=== PATIENT | male | born 1965 | race Caucasian/White ===

== ENCOUNTER 2018-03-24 05:54 | Emergency (ER) | payer BC, OTHER ==
[~2018-03-24] VITALS: Ht 188 cm; Wt 95.3 kg
[2018-03-24 06:34] LABS: BASOPHILS % (AUTO) 0 % (0-10); EOSINOPHILS # (AUTO) 0.2 10^3/uL (0.0-0.3); EOSINOPHILS % (AUTO) 3 % (0-10); HEMATOCRIT 46 % (40-54); LYMPHOCYTES # (AUTO) 1.5 X 10^3 (1.0-4.0); LYMPHOCYTES % (AUTO) 26 % (12-44); MEAN CORPUSCULAR HEMOGLOBIN 30 PG (25-34); MEAN CORPUSCULAR HGB CONC 35 G/DL (32-36); MEAN CORPUSCULAR VOLUME 87 FL (80-99); MEAN PLATELET VOLUME 9.8 FL (7.4-10.4); MONOCYTES # (AUTO) 0.7 X 10^3 (0.0-1.0); MONOCYTES % (AUTO) 13 % (0-12); NEUTROPHILS # (AUTO) 3.3 X 10^3 (1.8-7.8); NEUTROPHILS % (AUTO) 58 % (42-75); PLATELET COUNT 186 10^3/uL (130-400); RED BLOOD COUNT 5.26 10^6/uL (4.35-5.85); WHITE BLOOD COUNT 5.7 10^3/uL (4.3-11.0)
[2018-03-24 06:38] LABS: BILIRUBIN,URINE NEGATIVE (NEGATIVE); CLARITY,URINE CLEAR; COLOR,URINE YELLOW; GLUCOSE, URINE (UA) NEGATIVE (NEGATIVE); KETONES,URINE NEGATIVE (NEGATIVE); LEUKOCYTE ESTERASE ,URINE 1+ (NEGATIVE); NITRITE,URINE NEGATIVE (NEGATIVE); PH,URINE 5 (5-9); PROTEIN,URINE 2+ (NEGATIVE); UROBILINOGEN,URINE 1 MG/DL (NORMAL)
[2018-03-24 06:48] LABS: BACTERIA,URINE TRACE /HPF; RBC,URINE 50-100 /HPF; WBC,URINE 0-2 /HPF
--- NOTE | 2018-03-24 06:49 | ED Abdominal Pain ---
General Chief Complaint: Abdominal/GI Problems Stated Complaint: RT SIDE ABD PAIN Nursing Triage Note: PT AMB TO ROOM #5 GUARDING STOMACH IN PAIN. A&OX4. C/O LOWER RT SIDE ABD PAIN THAT BEGAN THIS AM AFTER BOWEL MOVEMENT. PT REPORTS HE WOKE UP THIS AM, HAD 2X CUPS OF COFFEE, HAD BM, AND BEGAN TO HAVE "EXTREME" ABD PAIN. PT REPORTS HE HAS NEVER HAD SIMILAR PAIN BEFORE. REPORTS HX OF STOMACH ULCERS APPROX 9 YEARS AGO AND REPORTS TO NOT BE F/U HE SHOULD WITH PCP. DENIES RECENT SICKNESS. DENIES N/V OR DIARRHEA. DURING TRIAGE PT NOTED TO BE RUBBING STOMACH AND MOANING IN PAIN. Sepsis Screen: No Definite Risk Source of Information: Patient Exam Limitations: No Limitations History of Present Illness Date Seen by Provider: Mar 24, 2018 Time Seen by Provider: 06:44 Initial Comments The patient is a 52-year-old white male who reports that at approximately 0430 hours he got up to the bathroom to have a bowel movement. The bowel movement appeared normal but immediately following that he was stricken with a sharp pain in his right lower quadrant. This has come continued unabated. He reports sweats but no apparent fever. He found it necessary to walk stooped over. He has all his abdominal organs. He gives a history of ulcer disease some 9 years ago which has been controlled by proton pump inhibitors. Timing/Duration: 1-3 Hours Severity/Quality: Moderate, Severe Location: RLQ Radiation: No Radiation Activities at Onset: None Allergies and Home Medications Allergies Coded Allergies: No Known Drug Allergies (Unverified , 03/24/18) Patient Home Medication List Home Medication List Reviewed: Yes Review of Systems Review of Systems Constitutional: see HPI EENTM: No Symptoms Reported Respiratory: No Symptoms Reported Cardiovascular: No Symptoms Reported Gastrointestinal: See HPI Genitourinary: No Symptoms Reported Musculoskeletal: no symptoms reported Skin: no symptoms reported Psychiatric/Neurological: No Symptoms Reported Endocrine: No Symptoms Reported Hematologic/Lymphatic: No Symptoms Reported Past Azoowop-Igolpx-Xnvzcm Hx Patient Social History Alcohol Use: Occasionally Uses Alcohol Beverage of Choice: Beer Recreational Drug Use: No Smoking Status: Never a Smoker 2nd Hand Smoke Exposure: No Recent Foreign Travel: No Contact w/Someone Who Travel: No Recent Infectious Disease Expo: No Recent Hopitalizations: No Physical Abuse: No Sexual Abuse: No Mistreated: No Seasonal Allergies Seasonal Allergies: No Past Medical History Surgeries: Yes (CARPAL TUNNEL) Respiratory: No Cardiac: No Neurological: No Genitourinary: No Musculoskeletal: No Endocrine: No HEENT: No Cancer: No Psychosocial: No Integumentary: No Blood Disorders: No Physical Exam Vital Signs Vital Signs - First Documented 03/24/18 06:00 Temp 96.9 Pulse 56 Resp 16 B/P (MAP) 133/85 (101) Pulse Ox 99 O2 Delivery Room Air Capillary Refill : Less Than 3 Seconds Height/Weight/BMI Height: 6'2.00" Weight: 210lbs. oz. 95.325301nx; BMI Method:Stated General Appearance: moderate distress, other (anxious) HEENT: normal ENT inspection Neck: full range of motion Respiratory: chest non-tender, lungs clear, normal breath sounds, no respiratory distress, no accessory muscle use Cardiovascular: normal peripheral pulses, regular rate, rhythm, no edema, no gallop, no JVD, no murmur Gastrointestinal: abnormal bowel sounds (decreased), guarding (right lower quadrant) Extremities: normal range of motion, non-tender, normal inspection, no pedal edema, no calf tenderness, normal capillary refill, pelvis stable Back: normal inspection Pelvic: normal external exam, normal adnexa, no cerv. motion tender, no masses , discharge Neurologic/Psychiatric: shared services and outsourcing manager II-XII nml as tested, no motor/sensory deficits, alert, normal mood/affect, oriented x 3 Skin: normal color, warm/dry Lymphatic: no adenopathy Progress/Results/Core Measures Results/Orders Lab Results Laboratory Tests Test 03/24/18 06:10 03/24/18 06:15 Range/Units White Blood Count 5.7 4.3-11.0 10^3/uL Red Blood Count 5.26 4.35-5.85 10^6/uL Hemoglobin 16.0 13.3-17.7 G/DL Hematocrit 46 40-54 % Mean Corpuscular Volume 87 80-99 FL Mean Corpuscular Hemoglobin 30 25-34 PG Mean Corpuscular Hemoglobin Concent 35 32-36 G/DL Red Cell Distribution Width 13.0 10.0-14.5 % Platelet Count 186 130-400 10^3/uL Mean Platelet Volume 9.8 7.4-10.4 FL Neutrophils (%) (Auto) 58 42-75 % Lymphocytes (%) (Auto) 26 12-44 % Monocytes (%) (Auto) 13 H 0-12 % Eosinophils (%) (Auto) 3 0-10 % Basophils (%) (Auto) 0 0-10 % Neutrophils # (Auto) 3.3 1.8-7.8 X 10^3 Lymphocytes # (Auto) 1.5 1.0-4.0 X 10^3 Monocytes # (Auto) 0.7 0.0-1.0 X 10^3 Eosinophils # (Auto) 0.2 0.0-0.3 10^3/uL Basophils # (Auto) 0.0 0.0-0.1 10^3/uL Sodium Level 139 135-145 MMOL/L Potassium Level 4.0 3.6-5.0 MMOL/L Chloride Level 104 98-107 MMOL/L Carbon Dioxide Level 23 21-32 MMOL/L Anion Gap 12 5-14 MMOL/L Blood Urea Nitrogen 25 H 7-18 MG/DL Creatinine 1.27 0.60-1.30 MG/DL Estimat Glomerular Filtration Rate 59 BUN/Creatinine Ratio 20 Glucose Level 122 H 70-105 MG/DL Calcium Level 9.5 8.5-10.1 MG/DL Corrected Calcium 9.1 8.5-10.1 MG/DL Total Bilirubin 0.7 0.1-1.0 MG/DL Aspartate Amino Transf (AST/SGOT) 24 5-34 U/L Alanine Aminotransferase (ALT/SGPT) 39 0-55 U/L Alkaline Phosphatase 74 40-136 U/L Total Protein 6.9 6.4-8.2 GM/DL Albumin 4.5 3.2-4.5 GM/DL Urine Color YELLOW Urine Clarity CLEAR Urine pH 5 5-9 Urine Specific Normal 1.025 H 1.016-1.022 Urine Protein 2+ H NEGATIVE Urine Glucose (UA) NEGATIVE NEGATIVE Urine Ketones NEGATIVE NEGATIVE Urine Nitrite NEGATIVE NEGATIVE Urine Bilirubin NEGATIVE NEGATIVE Urine Urobilinogen 1 NORMAL MG/DL Urine Leukocyte Esterase 1+ H NEGATIVE Urine RBC (Auto) 5+ H NEGATIVE Urine RBC 50-100 H /HPF Urine WBC 0-2 /HPF Urine Squamous Epithelial Cells 5-10 /HPF Urine Crystals NONE /LPF Urine Bacteria TRACE /HPF Urine Casts NONE /LPF Urine Mucus MODERATE H /LPF Urine Culture Indicated NO My Orders Orders - JEAN MARIE FAUSTIN MD Cbc With Automated Diff (11/2/18 06:22) Comprehensive Metabolic Panel (03/24/18 06:22) Ua Culture If Indicated (03/24/18 06:22) Ketorolac Injection (Toradol Injection) (03/24/18 07:00) Ct Abd/Pelvis Wo(Kidney Stone) (03/24/18 06:59) Abdomen/Kub 1view (03/24/18 07:55) Medications Given in ED Current Medications Medications Dose Ordered Sig/Jeannette Route Start Time Stop Time Status Last Admin Dose Admin Ketorolac Tromethamine 30 mg ONCE ONCE IVP 03/24/18 07:00 03/24/18 07:02 DC 03/24/18 07:11 30 MG Vital Signs/I&O 03/24/18 06:00 Temp 96.9 Pulse 56 Resp 16 B/P (MAP) 133/85 (101) Pulse Ox 99 O2 Delivery Room Air Blood Pressure Mean: 101 Departure Communication (Admissions) CBC showed a low normal white count. UA showed 50 rbc's per high-powered field. Therefore CT scan was done with out contrast. Several tiny stones were noted in the kidney. A distal stone was noted in the right ureter just above the UVJ. It also appeared that there were 2 tiny stones in the bladder itself. The patient was apprised of these findings. Impression Primary Impression: right distal ureterolithiasis Disposition: 01 HOME, SELF-CARE Condition: Improved Departure-Patient Inst. Decision time for Depature: 07:58 Referrals: TAM HENDRICKSON DO (PCP/Family) Primary Care Physician Patient Instructions: No Instuctions Given Add. Discharge Instructions: All discharge instructions reviewed with patient and/or family. Voiced understanding. Increase oral fluids. 2.strain all urine 3.take meds as directed. 4.call Dr. Guallpa's office at [phone] for appointment early next week. Scripts Hydrocodone Bit/Acetaminophen (LORTAB 7.5 MG TABLET) 1 Ea Tablet 1 EA PO 4 times a day, #20 TAB Prov: JEAN MARIE FAUSTIN MD 03/24/18 JEAN MARIE FAUSTIN MD Mar 24, 2018 06:49
[2018-03-24 06:54] LABS: ALBUMIN 4.5 GM/DL (3.2-4.5); BILIRUBIN,TOTAL 0.7 MG/DL (0.1-1.0); CALCIUM 9.5 MG/DL (8.5-10.1); CREATININE SERUM 1.27 MG/DL (0.60-1.30); TOTAL PROTEIN 6.9 GM/DL (6.4-8.2)
[2018-03-24] MEDS ORDERED: KETOROLAC 30 MG/ML VIAL IVP ONE (07:00)
--- NOTE | 2018-03-24 07:31 | Diagnostic Imaging Report ---
PROCEDURE: CT urinary tract, rule out kidney stone. TECHNIQUE: Multiple contiguous axial images were obtained through the abdomen and pelvis without the use of intravenous contrast. INDICATION: Right lower quadrant pain. No prior examination available for comparison. FINDINGS: Heart size is normal. Lung bases are clear. The liver is normal in size without focal lesions. Gallbladder is unremarkable. No biliary ductal dilatation. Spleen is normal. Pancreas and adrenal glands are unremarkable. There are punctate nonobstructing stones in the kidneys bilaterally. There is a small right renal cyst. There is mild right hydronephrosis and hydroureter secondary to a 3 mm stone seen just proximal to the right UVJ. There is some focal induration in the central mesentery. The abdominal aorta is nonaneurysmal. Bowel gas pattern is nonspecific. There is no free air. The bladder is normal. No pelvic mass or adenopathy. The osseous structures are unremarkable. IMPRESSION: Mild right hydronephrosis and hydroureter secondary to a 3 mm stone seen just proximal to the right UVJ. There are additional punctate nonobstructing bilateral renal calculi. There is also a right renal cyst. Focal induration in the central mesentery. 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 Recommend clinical correlation. No other acute abnormality in the abdomen or pelvis. Dictated by: Dictated on workstation # [id number]
[2018-03-24] MEDS ORDERED: HYDR-34 PO (08:02)
[2018-03-24 08:20] VITALS: BP 131/92
--- NOTE | 2018-03-24 08:39 | Diagnostic Imaging Report ---
Indication: Right-sided abdominal pain. Time of exam: 8:33 AM Bowel gas pattern is nonobstructive. No free air is seen. Calcific density in the medial right pelvis is noted, likely representing the right UVJ calculus noted on CT. Left pelvic calcification is consistent with a phlebolith. Impression: Distal right ureteral calculus. The study is otherwise unremarkable. Dictated by: Dictated on workstation # [id number]
== END 2018-03-24 08:20 | disposition home or self-care (01) ==
LOC: EDUNIT# 05:54 → ER 05:57
DX: N13.2 Hydronephrosis with renal and ureteral calculous obstruction (principal)
CPT/HCPCS: 36415; 74018; 74176; 80053; 81000; 85025; 96374

== ENCOUNTER 2018-03-27 14:00 | Outpatient (RCR) | payer BC, OTHER | END 2018-06-25 | disposition home or self-care (01) | LOC: LAB 14:00 | PROVIDERS: ATTEND Urology | DX: N20.0 Calculus of kidney (principal) | CPT/HCPCS: 36415; 82140; 82340; 82507; 82570; 83735; 83945; 83986; 84105; 84133; 84300; 84392; 84560; 88300 ==

== ENCOUNTER → 2018-03-27 | Outpatient (CLI) | payer BC ==
[~2018-03-27] MED LIST: HYDR-34 PO
--- NOTE | 2018-03-27 17:56 | Diagnostic Imaging Report ---
INDICATION: History of kidney stones. COMPARISON: CT dated 03/24/2018. FINDINGS: Two supine radiographic views of the abdomen were obtained. No unexpected extraosseous calcifications or radiopaque foreign bodies are seen on today's study. Small bowel loops are nondistended. There is no large collection of free intraperitoneal air. Bony structures show no gross acute abnormalities. Included portions of the lung bases are clear. IMPRESSION: 1. Nonobstructed small bowel gas pattern. 2. No unexpected extraosseous calcifications. Please note however that the patient's known distal right ureteral calculus may be inconspicuous. Dictated by: Dictated on workstation # [id number]
== END ==
LOC: RAD 11:42
PROVIDERS: ATTEND Urology
DX: N20.2 Calculus of kidney with calculus of ureter (principal)
CPT/HCPCS: 74018

== ENCOUNTER 2023-02-02 05:36 | Outpatient (CLI) | payer BC ==
[~2023-02-02] VITALS: Ht 187.9 cm; Wt 89.2 kg
[2023-02-02] MEDS ORDERED: NAPR220C11 PO (14:08)
[2023-02-04] MEDS ORDERED: ASPI-808 PO (10:07)
[2023-02-04] MEDS ORDERED: ACHD5005 PO (10:53)
== END 2023-02-03 09:33 | disposition home or self-care (01) ==
LOC: PREOP 05:36
PROVIDERS: ATTEND Surgery
DX: Z01.818 Encounter for other preprocedural examination (principal)

== ENCOUNTER 2023-02-04 07:14 | Day surgery (SDC) | payer BC ==
[2023-02-04] VITALS (10 sets, daily range): BP systolic 92–114; BP diastolic 59–78
[~2023-02-04] VITALS: Ht 187.9 cm; Wt 89.2 kg
[~2023-02-04 07:14] MED LIST changes: +NAPR220C11 PO
[2023-02-04] MEDS ORDERED: LIDOCAINE/EPI 1%-1:200,000 (XYLOCAINE) 30 ML VIAL ONE (07:56)
[2023-02-04] MEDS ORDERED: ceFAZolin INJECTION 2,000 MG in NS (IVPB) 50 ML 50 ML IV ONE (08:00)
[2023-02-04] MEDS ORDERED: LIDOCAINE/EPI 1%-1:200,000 (XYLOCAINE) 30 ML VIAL INJ ONE (08:00)
[2023-02-04] MEDS ORDERED: CATHETER FLUSH 10 ML SYR IVP PRN (08:15)
[2023-02-04] MEDS ORDERED: ROCURONIUM 50 MG/5 ML VIAL IV ONE (08:28)
[2023-02-04] MEDS ORDERED: MIDAZOLAM INJ 2 MG/2 ML VIAL ONE (08:28)
[2023-02-04] MEDS ORDERED: LIDOCAINE PF 2% 5 ML VIAL ONE (08:28)
[2023-02-04] MEDS ORDERED: fentaNYL INJECTION 100 MCG/2 ML VIAL ONE (08:28)
[2023-02-04] MEDS ORDERED: dexAMETHasone INJ 10 MG/ML 1 ML VIAL ONE (08:28)
[2023-02-04] MEDS ORDERED: SEVOFLURANE (ULTANE) 15 ML INHAL SOLN ONE ×2 (08:28→10:23)
[2023-02-04] MEDS ORDERED: proPOfol INJECTION 200 MG/20 ML VIAL IV ONE (08:28)
[2023-02-04] MEDS ORDERED: ONDANSETRON INJECTION 4 MG/2 ML (SDV) ONE (08:28)
[2023-02-04] MEDS ORDERED: LACTATED RINGERS 1,000 ML 1,000 ML IV PRN (09:45)
--- NOTE | 2023-02-04 09:48 | Progress Note-Pre Operative ---
Pre-Operative Progress Note Date of Available H&P: Feb 01, 2023 Date H&P Reviewed: Feb 04, 2023 Time H&P Reviewed: 09:42 History & Physical: H&P Reviewed, Patient Examed, No changes noted Pre-Operative Diagnosis: Left inguinal lymph node DIANE TAMEZ DO Feb 04, 2023 09:48
[2023-02-04] MEDS ORDERED: ASPI-808 PO (10:07)
[2023-02-04] MEDS ORDERED: KETOROLAC INJ 30 MG/ML VIAL ONE (10:24)
--- NOTE | 2023-02-04 10:35 | Anesthesia-General Post-Op ---
General Patient Condition Mental Status/LOC: Same as Preop Cardiovascular: Satisfactory Nausea/Vomiting: Absent Respiratory: Satisfactory Pain: Controlled Complications: Absent Post Op Complications Complications None Follow Up Care/Instructions Patient Instructions None needed. Anesthesia/Patient Condition Patient Condition Patient is doing well, no complaints, stable vital signs, no apparent adverse anesthesia problems. No complications reported per nursing. D/C home per [facility] [place] Criteria: Yes GUILLERMO MICHAEL CRNA Feb 04, 2023 10:35
[2023-02-04] MEDS ORDERED: HYDROmorphone INJECTION 2 MG/ML VIAL IV ONE (10:45)
[2023-02-04] MEDS ORDERED: ONDANSETRON INJECTION 4 MG/2 ML (SDV) IVP PRN (10:45)
--- NOTE | 2023-02-04 10:52 | Progress Note-Post Operative ---
Post-Operative Progess Note Surgeon (s)/Computer Mechanic (s) Surgeon DIANE TAMEZ DO Computer Mechanic: NEHEMIAH Bryant Pre-Operative Diagnosis Left inguinal lymph node Post-Operative Diagnosis Same pending path Procedure & Operative Findings Date of Procedure 02/04/23 Procedure Performed/Findings Excision of Left Inguinal Lymph node Anesthesia Type LMA Estimated Blood Loss Estimated blood loss (mL): scant Specimens/Packing Specimens Removed Left inguinal LN x 4 DIANE TAMEZ DO Feb 04, 2023 10:52
[2023-02-04] MEDS ORDERED: ACHD5005 PO (10:53)
--- NOTE | 2023-02-04 10:55 | Discharge Inst-Surgical ---
Discharge Inst-Surgical Depart Medication/Instructions New, Converted or Re-Newed RX: Transmitted to Pharmacy Patient Instructions Follow up Appt: Make appointment for 1 week. [phone] Instructions: No lifting greater than 20 pounds. No strenuous activity. May shower in 24 hours, no tub bath or soaking. Use incentive spirometer at home as directed. No Smoking Skin/Wound Care: May remove bandages in am. You need to leave the Dermabond on incision it will fall off on it's own. Symptoms to Report: Appetite Changes, Extremity Discoloration, Numbness/Tingling, Swelling Increased, Bleeding Excessive, Eyesight Changes, Pain Increased, Urine Color Change, Constipation(Persistent), Fever over 101 degree F, Pain/Pressure in chest, Urinating Difficulty, Cough Up/Vomit Blood, Heart Beat Irreg/Pounding, Pain/Pressure in jaw, Cramps in feet or legs, Lightheadedness, Pain/Pressure in shoulder, Diarrhea(Persistent), Memory Changes Suddenly, Questions/Concerns, Weight gain consecutive days, Dizziness/Fainting, Nausea/Vomiting, Shortness of Breath, Weight gain over 2 pounds If questions or concerns contact your physician Or seek help at emergency department. Activity Activity as Tolerated: Yes Driving Instructions: No Driving/Refer to Dr. Castro Discharge Diet: No Restrictions Diet After 24 Hours: Clear Liquid if Nauseous If Any Problems/Questions/Issu: Contact Your Physician, Go to Emergency Room Skin/Wound Care Infection Signs and Symptoms: Increased Redness, Foul Odor of Wound, Increased Drainage, Skin Itchy or Has a Rash, Increased Swelling, Temperature Above 101 F Bathing Instructions: Shower Ice Pack: Ice On and Off Site DIANE TAMEZ DO Feb 04, 2023 10:55
--- NOTE | 2023-02-04 20:44 | OPERATIVE REPORT ---
DATE OF SERVICE: 02/04/2023 PREOPERATIVE DIAGNOSIS: Left inguinal lymph node. POSTOPERATIVE DIAGNOSIS: Left inguinal lymph node, pending pathology. PROCEDURE: Excision of left inguinal lymph node. SURGEON: Salbador Mendenhall DO ARCADE GAME TECHNICIAN: ALF Bryant. BLOOD LOSS: Scant. FLUIDS: Per anesthesia. POSTOPERATIVE CONDITION: Stable. INDICATIONS FOR PROCEDURE: The patient is a 57-year-old male who had a left inguinal mass, thought was a hernia, but got an ultrasound done shows that was lymph nodes, wanted to get a biopsy for sample. We ended up removing 4 lymph nodes. DESCRIPTION OF PROCEDURE: After informed consent was obtained, the patient was brought to the operating room and placed on the table in supine position. He was sterilely prepped and draped in normal fashion. Local lidocaine used to infiltrate the skin above these palpable masses in the left inguinal region, made an incision with #15 blade, carried down through the skin into subcutaneous tissue, then deepened down to subcutaneous tissue with electrocautery. Going down, we encountered a small lymph node measured probably about 1.5 to 2 cm, removed this and then directly entered, found a very large lymph node, which was probably about 4 cm in diameter, elected to remove this, encounter little bit of bleeding, grasp the vessel with hemostats, removed this large lymph node and then suture ligated the bleeders with 3-0 Vicryl. Then found two more small lymph nodes, removed these as well, small little pea size lymph nodes, sent all of this to pathology. Area was then copiously irrigated with normal saline. There was no bleeding in the case, then elected to close the incision closing the Gutierrez's fascia, 3-0 Vicryl, 3-0 interrupted sutures, then closed the skin with a 4-0 undyed Monocryl in running subcuticular fashion. Area was cleaned and dried. Dermabond placed, then a dressing. The patient tolerated the procedure. Sponge and needle count correct at the end of the case. Job ID: [id number] DocumentID: [id number] Dictated Date: 02/04/2023 11:53:07 Debit Agent Date: 02/04/2023 20:42:00 Dictated By: SALBADOR MENDENHALL DO
== END 2023-02-04 12:40 | disposition home or self-care (01) ==
LOC: SDC 07:14
PROVIDERS: ATTEND Surgery
DX: C85.15 Unspecified B-cell lymphoma, lymph nodes of inguinal region and lower limb (principal); K21.9 Gastro-esophageal reflux disease without esophagitis; F17.210 Nicotine dependence, cigarettes, uncomplicated
CPT/HCPCS: 87081

== ENCOUNTER 2023-02-14 09:34 | Outpatient (RCR) | payer BC ==
[~2023-02-14 09:34] MED LIST changes: +ACHD5005 PO; +ASPI-808 PO
[2023-02-14 11:09] LABS: BASOPHILS % (AUTO) 1 % (0-10); EOSINOPHILS # (AUTO) 0.3 10^3/uL (0.0-0.3); EOSINOPHILS % (AUTO) 4 % (0-10); HEMATOCRIT 45 % (40-54); HEMOGLOBIN 16.3 g/dL (13.3-17.7); LYMPHOCYTES % (AUTO) 29 % (12-44); MEAN CORPUSCULAR HEMOGLOBIN 32 pg (25-34); MEAN CORPUSCULAR HGB CONC 36 g/dL (32-36); MEAN CORPUSCULAR VOLUME 87 fL (80-99); MEAN PLATELET VOLUME 9.7 fL (9.0-12.2); MONOCYTES # (AUTO) 0.7 10^3/uL (0.0-1.0); MONOCYTES % (AUTO) 9 % (0-12); NEUTROPHILS # (AUTO) 4.1 10^3/uL (1.8-7.8); NEUTROPHILS % (AUTO) 58 % (42-75); PLATELET COUNT 187 10^3/uL (130-400); WHITE BLOOD COUNT 7.1 10^3/uL (4.3-11.0)
[2023-02-14 11:21] LABS: ALBUMIN 4.3 GM/DL (3.2-4.5); POTASSIUM 4.2 MMOL/L (3.6-5.0)
[2023-02-14 11:22] LABS: CALCIUM 9.1 MG/DL (8.5-10.1)
[2023-02-14 11:24] LABS: TOTAL PROTEIN 7.2 GM/DL (6.4-8.2)
[2023-02-14 11:25] LABS: BILIRUBIN,TOTAL 0.4 MG/DL (0.1-1.0)
[2023-02-14 11:27] LABS: CREATININE SERUM 0.92 MG/DL (0.60-1.30)
[2023-02-14 21:17] LABS: HEPATITIS C ANTIBODY C Non-Reactive (Non-Reactive)
== END 2023-02-19 | disposition home or self-care (01) ==
LOC: ONC 09:34
PROVIDERS: ATTEND Internal Medicine Hematology & Oncology
DX: C85.10 Unspecified B-cell lymphoma, unspecified site (principal)
CPT/HCPCS: 80053; 80074; 83615; 85025; 87389; G0463; 36415; 99204

== ENCOUNTER → 2023-02-22 | Outpatient (CLI) | payer BC ==
[~2023-02-22] MED LIST changes: +HOLD METFORMIN - RECEIVED CONTRAST 20 ML VIAL IV SCH; +IOHEXOL 350 MG/ML 100 ML (OMNIPAQUE 350) VIAL IV ONE; +NS 100 ML (IVPB) BAG IV ONE
--- NOTE | 2023-02-22 11:18 | Diagnostic Imaging Report ---
EXAMINATION: CT neck, chest, abdomen, and pelvis with intravenous contrast. TECHNIQUE: Multiple contiguous axial images were obtained through the neck, chest, abdomen, and pelvis after the uneventful administration of intravenous contrast. All CT scans use one or more of the following dose optimizing techniques: Automated exposure control, MA and/or KvP adjustment based on patient size and exam type or iterative reconstruction. HISTORY: Lymphoma. COMPARISON: 03/24/2018. FINDINGS: Neck CT: There are several 10 mm submandibular lymph nodes on the right. The muscles of the neck are normal. Vessels of the neck demonstrate normal course and caliber. Fascial planes are preserved and the deep spaces of the neck are normal. The visualized airway is widely patent. The base of the skull and the temporal bones are normal. Limited views of the brain including the cerebellum and brainstem are normal. The limited view of the [place] is unremarkable. The visualized portions of the orbits are normal. Chest CT: There is no edema or pneumonia. No pleural effusion. No pneumothorax. No suspicious nodules. There is no axillary or supraclavicular lymphadenopathy. There is no mediastinal lymphadenopathy. Heart size is normal. There are no coronary artery calcifications. No pericardial effusion. Aorta is normal in caliber. Abdomen and Pelvis CT: There are several cysts in the liver. No suspicious liver lesion. There is no biliary ductal dilation. Gallbladder is normal. Pancreas is normal. Spleen is normal. Adrenal glands are normal. There are cysts in the kidneys. No suspicious renal lesion. There is no hydronephrosis. Urinary bladder is normal. Bowel is normal in caliber without obstruction or inflammation. There is mesenteric stranding with a thin band of soft tissue measuring 5 cm in length but only 7 mm in thickness, unchanged from 2018. No free fluid or air. There are enlarged lymph nodes on the left with external iliac lymph nodes measuring 14 mm. There are recent surgical changes of a left groin lymph node biopsy. Aorta is normal in caliber without aneurysm. There are no suspicious osseous lesions. IMPRESSION: 1. Indeterminate mildly enlarged right submandibular lymph nodes. 2. Enlarged left groin lymph nodes with changes of a recent lymph node biopsy. 3. Mesenteric stranding with a small amount of soft tissue in the mesentery with the differential including lymphomatous involvement of the mesentery and mesenteric panniculitis. 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 Dictated by: Dictated on workstation # [id number]
== END ==
LOC: RAD 08:55
PROVIDERS: ATTEND Internal Medicine Hematology & Oncology
DX: C85.10 Unspecified B-cell lymphoma, unspecified site (principal); K65.4 Sclerosing mesenteritis
CPT/HCPCS: 70491; 71260; 74176

== ENCOUNTER → 2023-03-10 | Outpatient (CLI) | payer BC ==
[~2023-03-10] MED LIST changes: +CATHETER FLUSH 10 ML SYR IVP PRN; -HOLD METFORMIN - RECEIVED CONTRAST 20 ML VIAL IV SCH; -IOHEXOL 350 MG/ML 100 ML (OMNIPAQUE 350) VIAL IV ONE; -NS 100 ML (IVPB) BAG IV ONE
--- NOTE | 2023-03-10 15:16 | Diagnostic Imaging Report ---
INDICATION: Initial staging lymphoma. Serum blood glucose level at the time of injection is 118 mg/dL. The patient was administered 10.6 mCi F-18 FDG intravenously in the right antecubital location and PET imaging was performed from the top of the skull to mid thighs. Noncontrast CT was also performed for attenuation correction and anatomic correlation. No prior PET studies are available for comparison. Comparison is made with recent CT of the neck, chest, abdomen and pelvis performed 02/22/2023. There is symmetric activity throughout the brain. The previously noted right submandibular lymph node demonstrates some low level activity with an SUV max of 4.2. No mediastinal or hilar hypermetabolism is seen. No pulmonary parenchymal hypermetabolism is identified. There is physiologic activity throughout the gastrointestinal and genitourinary tracts of the abdomen and pelvis. There is some low-level uptake involving a left common iliac lymph node with an SUV max of 4.2. Additional lymph nodes along the left iliac chain show a higher amount of hypermetabolism with SUV max of 6.1. Conglomerative lymph nodes in the left external iliac and groin region demonstrated an SUV max of approximately 7. No other areas of hypermetabolism are identified. Specifically, the central mesentery is without hypermetabolic lymphadenopathy. IMPRESSION: Hypermetabolic lymphadenopathy right submandibular region as well as along the left iliac chain and left groin. Dictated by: Dictated on workstation # [id number]
== END ==
LOC: RAD 07:28
PROVIDERS: ATTEND Internal Medicine Hematology & Oncology
DX: C82.58 Diffuse follicle center lymphoma, lymph nodes of multiple sites (principal)
CPT/HCPCS: 78815; 82947; A9552

== ENCOUNTER → 2023-03-22 | Outpatient (RCR) | payer BC ==
[~2023-03-22] MED LIST changes: -CATHETER FLUSH 10 ML SYR IVP PRN
== END | disposition home or self-care (01) ==
LOC: ONC 02-23 15:27
PROVIDERS: ATTEND Internal Medicine Hematology & Oncology
DX: C82.50 Diffuse follicle center lymphoma, unspecified site (principal)
CPT/HCPCS: 99214